=== PATIENT | female | born 1985 | race Caucasian/White ===

== ENCOUNTER 2017-03-06 05:19 | Emergency (ER) | payer MEDICAID, OTHER ==
[~2017-03-06] VITALS: Ht 167.6 cm; Wt 53.8 kg
[2017-03-06 05:21] VITALS: BP 123/81
[2017-03-06 05:56] LABS: HCG UR OBC PASS
[2017-03-06 06:06] LABS: HEMATOCRIT 39.7 % (34.6-47.8); WHITE BLOOD COUNT 10.6 x10^3/uL (3.4-10)
[2017-03-06] MEDS ORDERED: AZITHROMYCIN 500 MG TABLET PO ONE (07:00)
[2017-03-06] MEDS ORDERED: CEFTRIAXONE 250 MG IM ONE (07:00)
[2017-03-06] MEDS ORDERED: AZITHROMYCIN 500 MG TABLET ONE (07:24)
[2017-03-06] MEDS ORDERED: CEFTRIAXONE 250 MG ONE (07:24)
== END 2017-03-06 09:43 | disposition home or self-care (01) ==
LOC: ED 05:52
DX: A74.9 Chlamydial infection, unspecified (principal)
CPT/HCPCS: 36415; 81001; 81025; 85025; 87077; 87086; 87186; 87210; 87491; 87591; 87808; 96372; 99284; J0696

== ENCOUNTER 2020-04-23 23:22 | Emergency (ER) | payer MEDICAID, OTHER ==
[~2020-04-23] VITALS: Ht 167.6 cm; Wt 60.3 kg
[2020-04-23 23:26] VITALS: BP 112/75
[2020-04-23] MEDS ORDERED: LIDOCAINE-MPF 1%, 5ML ONE (23:51)
[2020-04-23] MEDS ORDERED: BUPIVACAINE 0.25% ONE (23:51)
[2020-04-24] MEDS ORDERED: LIDOCAINE-MPF 1%, 5ML INFIL ONE
[2020-04-24] MEDS ORDERED: BUPIVACAINE 0.25% INFIL ONE
== END 2020-04-24 00:57 | disposition home or self-care (01) ==
LOC: ED 23:49
DX: K02.9 Dental caries, unspecified (principal)
CPT/HCPCS: 64400; 99284